=== PATIENT | female | born 1980 | race Caucasian/White ===

== ENCOUNTER 2017-08-18 19:26 | Inpatient (IN) | payer MEDICAID ==
[2017-08-18] MEDS ORDERED: ceFAZolin 2 GM in Premix Bag 1 BAG IV ONE (20:21)
[2017-08-18] MEDS ORDERED: Metoclopramide 10 MG/2 ML SDV IVPUSH ONE (20:21)
[2017-08-18] MEDS ORDERED: Citric Acid/Sodium Citrate Solution 30 ML Cup PO ONE (20:21)
[2017-08-18] MEDS ORDERED: Sodium Chloride 0.9% 10 ML Syringe FLUSH PRN (20:21)
[2017-08-18] MEDS: Lactated Ringers 1,000 ML IV SCH ×2 (20:30→21:04)
[2017-08-18] MEDS ORDERED: Bupivacaine 0.5% 30 ML SDV ONE (20:31)
--- NOTE | 2017-08-18 20:41 | PCM.LDHP ---
L&D History of Present Illness - General Date of Service: 08/18/17 Admit Problem/Dx: Patient Status Order with Admit Dx/Problem 08/18/17 20:26 Patient Status [ADT] Routine Admission Diagnosis/Problem Admission Diagnosis/Problem 08/18/17 20:29 38-0/7 week IUP, history of previous section, active labor, hypertension Source of Information: Patient History Limitations: Reports: No Limitations - History of Present Illness Introduction:: Ynes is a 37-year-old 3 para 1011 white female who is evaluated in labor and delivery for complaints of contractions. Contractions occurring every 4-7 lengths. There was mild to moderate by her report. She was evaluated earlier today. She had contractions for about 3 hours at that time but they did not change her cervix. She was sent home but it's come back now reporting the contractions are stronger. She denies any ruptured membranes. Baby is been active. heart tones are reassuring. Patient has previous history of section that was done for high blood pressure. Baby weighed 10 lbs. 1 oz. She is prepped for repeat serum section. The procedure, risks, benefits, alternatives of care and follow-up were discussed in detail patient. She appears to understand and wish to proceed. [employer] history: 3 para 1011 TRISH is 09/01/2017 as based upon a an early ultrasound done at 6-0/7 weeks on 01/06/2017. This is supported by 3 other ultrasounds done later in . Her initial course was significant in that she declined genetic testing. She has a history of depression. Her invert depression screening score however on 04/03/2017 was scored and 9. She failed her 1 hour GTT but her 3 hour glucose tolerance test was normal. Groupie strep screen is positive. Has been on Zoloft in the past. Her previous deliveries by section for high blood pressure. She had a miscarriage in 01/13/2013. Last menstrual period was 10/09/2016 but was uncertain. Weight gain during the course of her was from 243 pounds up to 260 pounds for 25 pound weight gain. Blood pressures have been normal until her admission for this evaluation which tented running in the 150s 160s over low 100s diastolically. Laboratory testing shows her blood to be O+. Her antibody screen is negative. Her hemoglobin is 14.3 and platelets are 2 58,000 on her first visit. Her daughter shows immunity. RPR is nonreactive. Urine culture negative. Hepatitis B antigen negative. HIV assay was negative. Her GC and chlamydia assay were normal. Her second trimester hemoglobin was 12.3 and her MCV is 86.6. Allergies: Ibuprofen which causes nausea Medications: vitamins 1 daily Past medical history: 1. Miscarriage. 2. with hypertension and macrosomia-delivered by section Past surgical history: 1. primary section. Family history: No significant rales no specific renal anesthesia, bleeding or blood clotting problems noted. Social history patient is single. Her significant other is Ivan Valladares. She continues smokes 15 cigarettes per day. She is not using significant alkaline phosphatase alcohol drugs otherwise. She lives in [facility]. Review of systems: Skin: Negative Cardiovascular: Negative. No palpitations or exercise intolerance noted. Respiratory: Negative Breasts: Changes Murillo GI: Normal. : Changes associated with Neurological: Negative Musca skeletal: Negative Physical exam blood pressure 7 elevated. Her weight in clinic was 268 pounds. Her height is 5 feet 4. In general patient is well-developed, well-nourished, pleasant female was massively obese and had a first vitamins and BMI of 40. Skin is warm and dry. Patient has some acne scarring. HEENT neck and back within normal lives. Cardiovascular exam shows regular rate and rhythm Lungs are clear with good breath sounds in all lung moe. Breast exam deferred. Abdomen is protuberant with with last fundal height in clinic and noted to be 39 cm. Baby in vertex presentation Cervical exam is closed, -3 very difficult to Extremities and neurological exam grossly within normal. Deep tendon reflexes now are minimal to 1+ over 4 bilateral lower extremities and upper extremities - Related Data Allergies/Adverse Reactions: Allergies Allergy/AdvReac Type Severity Reaction Status Date / Time ibuprofen AdvReac Nausea and Verified 01/16/17 21:15 Vomiting Home Medications: Home Meds . 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, L knee arthoscopy, R knee pain (chronic) Neurological History: Reports: Migraines Psychiatric History: Reports: Depression Other Dermatologic History: pt has sores on arms, open sores, pt states, "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." pt states, "I don't know what the sores are from - Past Surgical History Female Surgical History: Reports: Section, Lithotripsy/ESWL Musculoskeletal Surgical History: Reports: Amputation, Arthroscopic Knee Social & Family History - Family History Family Medical History: Noncontributory - Tobacco Use Smoking Status *Q: Current Every Day Smoker Years of Tobacco use: 17 Packs/Tins Daily: 0.5 Used Tobacco, but Quit: No Month Tobacco Last Used: 2 weeks ago Second Hand Smoke Exposure: Yes - Caffeine Use Caffeine Use: Reports: Soda - Alcohol Use Days Per Week of Alcohol Use: 0 Number of Drinks Per Day: 1 Total Drinks Per Week: 0 - Recreational Drug Use Recreational Drug Use: No Drug Use in Last 12 Months: Yes Recreational Drug Type: Reports: Marijuana/Hashish Recreational Drug Use Frequency: Binges H&P Review of Systems - Review of Systems: Review Of Systems: See Below L&D Exam - Exam Exam: See Below - Vital Signs Weight: 122.016 kg Problem List Initiated/Reviewed/Updated: Yes Orders Last 24hrs: Active Orders 24 hr Category Date Time Status Patient Status [ADT] Routine ADT 08/18/17 20:26 Ordered Communication Order [RC] ROUTINE Care 08/18/17 20:26 Ordered Heart Tones [RC] PER UNIT ROUTINE Care 08/18/17 20:26 Ordered Peripheral IV Care [RC] . DIRECTED Care 08/18/17 20:27 Ordered Procedure Site Prep Instruct [RC] ASDIRECTED Care 08/18/17 20:26 Ordered Verify Patient Consent Obtain [RC] PER UNIT ROUTINE Care 08/18/17 20:26 Ordered Vital Signs [RC] PFP Care 08/18/17 20:26 Ordered Nothing Per Oral Diet [DIET] Diet 08/18/17 Dinner Ordered ALANINE AMINOTRANSFERASE,ALT [CHEM] Stat Lab 08/18/17 20:29 Ordered ASPARTATE AMNIOTRANSFERASE,AST [CHEM] Stat Lab 08/18/17 20:29 Ordered CBC WITH AUTO DIFF [HEME] Stat Lab 08/18/17 20:29 Ordered CREATININE W/GFR [CHEM] Stat Lab 08/18/17 20:29 Ordered LACTATE DEHYDROGENASE,LDH [CHEM] Stat Lab 08/18/17 20:29 Ordered TYPE AND SCREEN [BBK] Routine Lab 08/18/17 20:26 Ordered URIC ACID [CHEM] Stat Lab 08/18/17 20:29 Ordered Citric Acid/Sodium Citrate [Bicitra Solution] Med 08/18/17 20:21 Once 30 ml PO ONETIME ONE Lactated Ringers @ 125 MLS/HR(1000ml) Med 08/18/17 20:30 Ordered Lactated Ringers [Ringers, Lactated] 1,000 ml IV ASDIRECTED Metoclopramide [Reglan] Med 08/18/17 20:21 Once 10 mg IVPUSH ONETIME ONE Sodium Chloride 0.9% [Saline Flush] Med 08/18/17 20:21 Ordered 10 ml FLUSH ASDIRECTED PRN ceFAZolin [Ancef] 2 gm Med 08/18/17 20:21 Ordered Premix Bag 1 bag IV ONETIME PIH Panel [OM.PC] Stat Oth 08/18/17 20:21 Ordered Peripheral IV Insertion Adult [OM.PC] Routine Oth 08/18/17 20:26 Ordered Schedule Procedure [COMM] Per Unit Routine Oth 08/18/17 20:26 Ordered Resuscitation Status Routine Resus Stat 08/18/17 20:21 Ordered Assessment/Plan Comment:: Assessment: 1. 38-0/7 week intrauterine , labor, history of previous section desire for repeat section 2. Hypertension in labor. 3. Risk factors for surgery include history of previous section, obesity, , group B strep positive status 4. Patient plans to bottlefeed. Plan: 1. Repeat lower segment transverse section through Pfannenstiel skin incision under spinal block. Procedure, risks, benefits, possible complications , follow-up all discussed patient. She appears to understand and wishes to proceed 2. DVT prophylaxis SCDs 3. Infection prophylaxis Ancef 4. CBC, induced hypertension labs to be performed.
--- NOTE | 2017-08-18 20:48 | PCM.PREANE ---
Preanesthetic Assessment - Procedure Proposed Procedure: Repeat CSection - Anesthesia/Transfusion/Family Hx Anesthesia History: Prior Anesthesia Without Reaction Family History of Anesthesia Reaction: No Transfusion History: No Prior Transfusion(s) - Review of Systems General: No Symptoms Pulmonary: No Symptoms Cardiovascular: No Symptoms Gastrointestinal: No Symptoms Neurological: No Symptoms Other: Reports: None - Physical Assessment NPO Status Date: 08/18/17 NPO Status Time: 17:30 Pulse: 86 O2 Sat by Pulse Oximetry: 98 Respiratory Rate: 20 Blood Pressure: 148/84 Height: 1.63 m Weight: 122.016 kg ASA Class: 2 Mental Status: Alert & Oriented x3 Airway Class: Mallampati = 1 Dentition: Reports: Broken Tooth/Teeth (right upper molar cracked ), Missing Tooth/Teeth (molars) Thyro-Mental Finger Breadths: 3 Mouth Opening Finger Breadths: 3 ROM/Head Extension: Full Lungs: Clear to Auscultation, Normal Respiratory Effort Cardiovascular: Regular Rate, Regular Rhythm - Allergies Allergies/Adverse Reactions: Allergies Allergy/AdvReac Type Severity Reaction Status Date / Time ibuprofen AdvReac Nausea and Verified 01/16/17 21:15 Vomiting - Blood Blood Available: No Product(s) Available: None - Anesthesia Plan Pre-Op Medication Ordered: None - Acknowledgements Anesthesia Type Planned: Spinal Pt an Appropriate Candidate for the Planned Anesthesia: Yes Alternatives and Risks of Anesthesia Discussed w Pt/Guardian: Yes Pt/Guardian Understands and Agrees with Anesthesia Plan: Yes PreAnesthesia Questionnaire - Past Health History Medical/Surgical History: Denies Medical/Surgical History Gastrointestinal History: Reports: Other (See Below) Other Gastrointestinal History: obesity Genitourinary History: Reports: Renal Calculus 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: 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: Spontaneous Musculoskeletal History: Reports: Other (See Below) Other Musculoskeletal History: L shoulder fx, 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, L knee arthoscopy, R knee pain (chronic) Neurological History: Reports: Migraines Psychiatric History: Reports: Depression Other Dermatologic History: pt has sores on arms, open sores, pt states, "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 [No Known Home Meds] 01/16/17 [History] - CURRENT (IN HOUSE) MEDS Current Meds: Current Medications Cefazolin Sodium/Dextrose 2 gm (/ Premix) 50 mls @ 100 mls/hr IV ONETIME ONE Stop: 08/18/17 20:50 Lactated Ringer's (Ringers, Lactated) 1,000 mls @ 125 mls/hr IV ASDIRECTED YENNI Last Admin: 08/18/17 20:30 Dose: 999 mls/hr Sodium Chloride (Saline Flush) 10 ml FLUSH ASDIRECTED PRN PRN Reason: Keep Vein Open Discontinued Medications Citric Acid/Sodium Citrate (Bicitra Solution) 30 ml PO ONETIME ONE Stop: 08/18/17 20:22 Metoclopramide HCl (Reglan) 10 mg IVPUSH ONETIME ONE Stop: 08/18/17 20:22
[2017-08-18] MEDS ORDERED: Meperidine PF 50 MG/ML Syringe IVPUSH PRN (21:49)
[2017-08-18] MEDS ORDERED: Ondansetron 4 MG/2 ML SDV IVPUSH PRN (21:49)
[2017-08-18] MEDS ORDERED: diphenhydrAMINE 50 MG/ML SDV IVPUSH PRN ×2 (21:49→23:31)
--- NOTE | 2017-08-18 22:24 | PCM.OPNOTE ---
- General Post-Op/Procedure Note Date of Surgery/Procedure: 08/18/17 Operative Procedure(s): Repeat lower uterine segment transverse section through Pfannenstiel skin incision Findings: Moderate scarring in the anterior abdominal wall and in the peritoneal cavity. Baby is in vertex presentation. Amniotic fluid was clear. Uterus tubes and ovaries otherwise were consistent with term . Lower uterine segment was approximately 2-3 mm thick. The baby weighed 7 lbs. 13 oz., was a male , was born at 2136 hrs. on 08/18/2015. Pre Op Diagnosis: 38-0/7 week intrauterine , history of previous section, early labor, desire for repeat section, transient gestational hypertension Post-Op Diagnosis: Same with delivery of a 7 lbs. 13 oz. male infant with Apgars of 9 and 9 Anesthesia Technique: Spinal Other Anesthesia Type: Marcaine 0.5%20 mL total Primary Surgeon: Reji Goldstein Secondary Surgeon: Ivan Mena Anesthesia Provider: Arden Simons Outreach Nurse: Jason Little Outreach Nurse: Micaela Gutierrez Fluid Replacement, Intraop: 1,200 (Crystalloid) Output, Urine Amount: 100 EBL in mLs: 600 Drain/Tube Comments:: Indwelling bladder catheter Complications: None Condition: Good Free Text/Narrative:: Surgery duration: 47 minutes Procedure: Patient was transferred the room and placed in a sitting position. Spinal anesthesias was administered. After confirmation of adequate anesthesia patient was placed in a supine position with a wedge under her right side to facilitate left lateral positioning. The patient was prepped and draped in usual fashion after Madden catheter was already placed . The anesthetic was checked and found to be adequate. The Pfannenstiel skin incision was then made carried down to skin subcutaneous and fascial layers. The fascia was then undermined superiorly and inferiorly to allow for adequate operating room the recti muscles midline and preperitoneal fat was bluntly dissected. Peritoneal cavity was entered longitudinally. The vesicouterine peritoneum was then incised transversely and bladder flap was developed. Myometrium was incised transversely to the level of the amniotic sac. This incision was extended bilaterally in a blunt fashion. The amniotic sac was then ruptured resulting clear amniotic fluid. A hand is placed and low uterine segment and the baby's head was brought forth through the incision. The baby was completely delivered using fundal pressure in a routine fashion. The nose and mouth were bulb suctioned. Baby's cord was clamped x2 cut and baby was handed off to attending bondactor machine operator Dr Cortez. Placenta was expressed after cord blood was obtained. Uterus was then exteriorized to allow for easier closure. The cervix was assessed and found to be dilated adequately to allow egress of blood. The uterus was closed in 2 layers. The first layer a running locked suture of 0 Monocryl, the second layer a running locked vertical mattress suture of 0 Monocryl. [id number] suture was placed at the left incision to control 1 bleeder. Hemostasis confirmed at this time. Sponge instrument needle counts are correct. The uterus was returned to the abdominal cavity and lateral gutters were cleared of blood. Once again sponge needle counts are correct. The anterior abdominal wall was closed with a #1 PDS suture from angle to angle. The subcutaneous area was found to be free of any bleeders. It was reapproximated with approximately 4 sutures of 0 Monocryl in an interrupted fashion. Skin was closed with a running subcuticular stitch of 3-0 Monocryl in a vertical mattress suture fashion using a Martin needle. Prineo mesh/glue was then applied to further approximate the incision. It should be noted that patient received 3 g of Ancef preoperatively for infection prophylaxis and had Pitocin infused after delivery of the placenta to facilitate uterine contraction. She also had sequential compression stockings in place for DVT prophylaxis. Patient was discharged from the operating room in satisfactory condition.
--- NOTE | 2017-08-18 22:27 | PCM.POSTAN ---
POST ANESTHESIA ASSESSMENT - MENTAL STATUS Mental Status: Alert, Oriented - VITAL SIGNS Pulse Rate: 71 SaO2: 96 Resp Rate: 25 Blood Pressure: 125/75 Temperature: 37.4 C - RESPIRATORY Respiratory Status: Respiratory Rate WNL, Airway Patent, O2 Saturation Stable - CARDIOVASCULAR CV Status: Pulse Rate WNL, Blood Pressure Stable - GASTROINTESTINAL GI Status: No Symptoms - PAIN Pain Score: 0 - POST OP HYDRATION Hydration Status: Adequate & Stable
[2017-08-18] MEDS: fentaNYL 100 MCG/2 ML SDV IVPUSH PRN ×3 (22:45→23:07)
[2017-08-18] MEDS ORDERED: Ondansetron 4 MG/2 ML SDV IV PRN (23:31)
[2017-08-18] MEDS ORDERED: ePHEDrine 50 MG/ML SDV IVPUSH PRN (23:31)
[2017-08-18] MEDS ORDERED: Dextrose 5%-Lactated Ringers 1,000 ML IV SCH (23:31)
[2017-08-18] MEDS ORDERED: Lanolin 100% Cream 7 GM Tube TOP PRN (23:31)
[2017-08-18] MEDS ORDERED: Naloxone 0.4 MG/ML SDV IVPUSH PRN (23:31)
[2017-08-18] MEDS ORDERED: Docusate Sodium 100 MG Cap PO PRN (23:31)
[2017-08-19] MEDS: Ketorolac 15 MG/ML SDV IVPUSH SCH ×3 (00:08→11:11)
[2017-08-19] MEDS ORDERED: Pneumococcal Polyvalent-23 Vaccine 0.5 ML SDV IM ONE (00:25)
[2017-08-19] MEDS ORDERED: Diphtheria,Pertussis(Acell),Tetanus Vaccine 0.5 ML SDV IM ONE (00:25)
[2017-08-19] MEDS: Acetaminophen/oxyCODONE 325-5 MG Tab PO PRN ×4 (02:35→19:41)
[2017-08-19] MEDS: Prenatal Multivitamin with Calcium/Folic Acid/Iron Tab PO SCH (08:16)
--- NOTE | 2017-08-19 09:31 | PCM48HPAN ---
Post Anesthesia Note - EVALUATION WITHIN 48HRS OF ANESTHETIC Vital Signs in Normal Range: Yes Patient Participated in Evaluation: Yes Respiratory Function Stable: Yes Airway Patent: Yes Cardiovascular Function Stable: Yes Hydration Status Stable: Yes Pain Control Satisfactory: Yes Nausea and Vomiting Control Satisfactory: Yes Mental Status Recovered: Yes - COMMENTS/OBSERVATIONS Free Text/Narrative:: Ynes has good movement in both of her legs. Denies headache and/or numbness and tingling in her legs. No further questions at this time.
--- NOTE | 2017-08-19 12:04 | PCM.SN ---
- Free Text/Narrative Note: Subjective: - Moderate amount of lochia - Currently has a urinary catheter - Breast feeding without difficulty. Objective: - VS: afebrile, last BP 148/97 w/ high of 152/80 overnight - Lungs: clear to auscultation bilaterally - CV: regular rate and rhythm, no murmurs - Abdomen: fundus located at umbilicus, firm, incision and dressing clean and intact - Extremities: no edema, DTRs normal, no calf tenderness - Labs: HGB 10.1, plt 143, uric acid 7.3 Assessment - Ynes is a 37-year-old G3, now P2012 s/p who is POD#1. - Blood pressures have been elevated - Currently breast feeding Plan: - Routine care - Continue monitoring blood pressures - IV to remain saline-locked - Possible d/c tomorrow - SCDs on while in bed
[2017-08-20] MEDS: Acetaminophen/oxyCODONE 325-5 MG Tab PO PRN ×5 (01:01→21:05)
[2017-08-20] MEDS: Prenatal Multivitamin with Calcium/Folic Acid/Iron Tab PO SCH (08:29)
--- NOTE | 2017-08-20 08:46 | PCM.SN ---
- Free Text/Narrative Note: Subjective: - Minimal amount of lochia - Breast feeding without difficulty Objective: - VS: afebrile, last BP 154/96, pulse 94 - Abdomen: fundus located one fingerbreadth below umbilicus, firm, incision and dressing clean and intact, mild ecchymosis noted above incision on patient's R- side of abdomen - Extremities: no edema, DTRs normal, no calf tenderness Assessment - Ynes is a 37-year-old G3, now P2012 s/p who is POD#2. - Blood pressures have remained elevated - Currently breast feeding Plan: - Routine care - Continue monitoring blood pressures - Begin labetalol 100 mg PO BID - Possible d/c tomorrow - SCDs on while in bed
[2017-08-20] MEDS: Labetalol 100 MG Tab PO SCH ×3 (08:54→21:04)
[2017-08-21] MEDS: Acetaminophen/oxyCODONE 325-5 MG Tab PO PRN ×2 (03:56→08:54)
--- NOTE | 2017-08-21 06:08 | PCM.DCSUM1 ---
Discharge Summary - Hospital Course Free Text/Narrative:: Ynes is a 37-year-old 2 now para 2000 white female who is admitted on 08/18/2017 for a repeat section. She had been in earlier that day with contractions and return to the clinic with progressive labor pains. She had a previous done with last for hypertension and was found to be in early labor. We proceeded to section. Please see operative report for details. She delivered a viable, 7 lbs. 13 oz. male infant born at 2136 hrs. on 08/18/2017. Baby had Apgars of 9 and 9. Upon admission to labor and delivery it was noted that her blood pressures were moderately elevated. After delivery she was started on labetalol 100 mg by mouth twice a day. Her uric acid was elevated at 7.3 but no other preeclampsia labs were abnormal. During the course of her /postoperative recovery her blood pressure stayed mildly elevated. She was increased to labetalol 200 mg every morning and 100 mg every afternoon on her last day in the hospital. The postoperative period she had essentially normal reflexes, minimal edema and no other signs or symptoms of preeclampsia. She is nursing without problems. She is desiring to be discharged today. - Discharge Data Discharge Date: 08/21/17 Discharge Disposition: Home, Self-Care 01 Condition: Good - Patient Summary/Data Operative Procedure(s) Performed: Repeat lower uterine segment transverse section through Pfannenstiel skin incision - Patient Instructions Diet: Regular Diet as Tolerated (Nursing diet with increased calcium and calories as recommended) Activity: As Tolerated (No lifting greater than 15 pounds, no baths for 1 week. No intercourse or tampons until seen back.) Driving: Do Not Drive (Do not drive for at least 1 week.) Showering/Bathing: May Shower Wound/Incision Care: Keep Operative Site/Wound Site Clean and Dry (Patient is informed as to how to take care of the Prineo mesh that is been placed on her abdominal incision.) Notify Provider of: Fever, Increased Pain, Swelling and Redness, Nausea and/or Vomiting - Discharge Plan Home Medications: Home Meds Acetaminophen/oxyCODONE [Percocet 325-5 MG] 2 tab PO Q4H PRN #30 tablet [Rx] Docusate Sodium [Colace] 100 mg PO Q12H PRN #10 cap 08/21/17 [Rx] Vit with Ca/FA/Iron [ Plus Iron] 1 each PO DAILY tablet [Rx] Patient Handouts: Delivery, Care After, Challenges and Solutions Referrals: Reji Goldstein MD [Primary Care Provider] - (Return to clinicDr. Goldstein1 week for blood pressure evaluation. Follow-up visit in 4 weeks for postop evaluation.) - Discharge Summary/Plan Comment DC Time >30 min.: No Discharge Summary/Plan Comment: Discharge instructions: 1. Discharge home 2. Regular, high fiber, nursing diet with increased calcium and calories as recommended 3. Precautions given concern increased pain, bleeding, temperature elevation, signs/symptoms of preeclampsia, DVT/PE. 4. Activity and follow-up discussed with patient. 5. Medications per home medication list printed, discussed with them given to the patient. 6. Return to clinic 1 week-Dr. Goldstein[facility]. Return to clinic-4 weeksDr. Goldsteinpostoperative visit Diagnosis: 1. 38 week intrauterine pregnancyhistory of previous section, active labor, delivered 2. Transient hypertension in Condition: Good - Patient Data Vitals - Most Recent: Last Vital Signs Temp 36.9 C 08/21/17 03:59 Pulse 90 08/21/17 03:59 Resp 18 08/21/17 03:59 BP 154/90 H 08/21/17 03:59 Pulse Ox 96 08/21/17 03:59 Weight - Most Recent: 122.016 kg I&O - Last 24 hours: Intake & Output 08/20/17 08/20/17 08/21/17 14:59 22:59 06:59 Intake Total 240 240 Balance 240 240 Med Orders - Current: Current Medications Diphenhydramine HCl (Benadryl) 25 mg IVPUSH Q6H PRN PRN Reason: Pruritis Diphenhydramine HCl (Benadryl) 25 mg IVPUSH Q6H PRN PRN Reason: Itching or Nausea Docusate Sodium (Colace) 100 mg PO Q12H PRN PRN Reason: Constipation Emollient Ointment (Lansinoh Hpa) 0 gm TOP ASDIRECTED PRN PRN Reason: Sore Nipples Ephedrine Sulfate (Ephedrine Sulfate) 5 mg IVPUSH SEECOMMENT PRN PRN Reason: Other Fentanyl (Sublimaze) 50 mcg IVPUSH Q5M PRN PRN Reason: Pain Last Admin: 08/18/17 23:07 Dose: 50 mcg Labetalol HCl (Normodyne) 200 mg PO ONETIME ONE Stop: 08/21/17 09:01 Meperidine HCl (Demerol) 12.5 mg IVPUSH ONETIME PRN PRN Reason: Shivering Naloxone HCl (Narcan) 0.1 mg IVPUSH SEECOMMENT PRN PRN Reason: Respiratory Depression Ondansetron HCl (Zofran) 4 mg IVPUSH ONETIME PRN PRN Reason: Nausea/Vomiting Ondansetron HCl (Zofran) 4 mg IV Q8H PRN PRN Reason: Nausea/Vomiting Oxycodone/Acetaminophen (Percocet 325-5 Mg) 2 tab PO Q4H PRN PRN Reason: Pain (moderate 4-6) Last Admin: 08/21/17 03:56 Dose: 2 tab Prenat Multivit/Aguila/Iron/Folic Ac ( Plus Iron) 1 each PO DAILY [facility], [facility] Last Admin: 08/20/17 08:29 Dose: 1 each Discontinued Medications Bupivacaine HCl (Marcaine 0.5%) Confirm Administered Dose 30 ml .ROUTE .STK-MED ONE Stop: 08/18/17 20:32 Last Admin: 08/18/17 21:32 Dose: 20 ml Citric Acid/Sodium Citrate (Bicitra Solution) 30 ml PO ONETIME ONE Stop: 08/18/17 20:22 Last Admin: 08/18/17 20:43 Dose: 30 ml Diphtheria/Tetanus/Acell Pertussis (Adacel) 0.5 ml IM .ONCE ONE Stop: 08/19/17 00:26 Last Admin: 08/19/17 22:33 Dose: 0.5 ml Cefazolin Sodium/Dextrose 2 gm (/ Premix) 50 mls @ 100 mls/hr IV ONETIME ONE Stop: 08/18/17 20:50 Last Admin: 08/19/17 00:00 Dose: Not Given Lactated Ringer's (Ringers, Lactated) 1,000 mls @ 125 mls/hr IV ASDIRECTED [facility], [facility] Last Admin: 08/18/17 21:04 Dose: 999 mls/hr Dextrose/Lactated Ringer's (Dextrose 5%-Lactated Ringers) 1,000 mls @ 125 mls/ hr IV ASDIRECTED YENNI Stop: 08/19/17 07:30 Last Admin: 08/19/17 01:15 Dose: 125 mls/hr Ketorolac Tromethamine (Toradol) 15 mg IVPUSH Q6H [facility] Stop: 08/19/17 11:01 Last Admin: 08/19/17 11:11 Dose: 15 mg Labetalol HCl (Normodyne) 100 mg PO BID [facility] Last Admin: 08/20/17 21:04 Dose: 100 mg Metoclopramide HCl (Reglan) 10 mg IVPUSH ONETIME ONE Stop: 08/18/17 20:22 Last Admin: 08/18/17 20:43 Dose: 10 mg Pneumococcal Polyvalent Vaccine (Pneumovax 23) 0.5 ml IM .ONCE ONE Stop: 08/19/17 00:26 Last Admin: 08/19/17 22:38 Dose: 0.5 ml Sodium Chloride (Saline Flush) 10 ml FLUSH ASDIRECTED PRN PRN Reason: Keep Vein Open *Q Meaningful Use (DIS) - VTE *Q VTE Criteria *Q: - Stroke *Q Stroke Criteria *Q: - AMI *Q AMI Criteria *Q:
[2017-08-21] MEDS: Prenatal Multivitamin with Calcium/Folic Acid/Iron Tab PO SCH (08:54)
[2017-08-21 08:57] VITALS: BP 156/100
[2017-08-21] MEDS ORDERED: Labetalol 100 MG Tab PO ONE (09:00)
== END 2017-08-21 09:55 | disposition home or self-care (01) | DRG 766 ==
LOC: JD.OB 19:26 → JD.OBCHECK 19:26 → JD.OB 20:57
PROVIDERS: ADMIT Obstetrics & Gynecology; ATTEND Obstetrics & Gynecology
PROC: 10D00Z1 Extraction of Products of Conception, Low, Open Approach (ICD-10-PCS; principal; 2017-08-18)
DX: O34.211 Maternal care for low transverse scar from previous cesarean delivery (principal); N85.8 Other specified noninflammatory disorders of uterus; Z3A.38 38 weeks gestation of pregnancy; Z37.0 Single live birth; O13.4 Gestational [pregnancy-induced] hypertension without significant proteinuria, complicating childbirth; Z88.8 Allergy status to other drugs, medicaments and biological substances; O99.334 Smoking (tobacco) complicating childbirth
CPT/HCPCS: 01961; 36415; 82565; 83615; 84450; 84460; 84520; 84550; 85025; 86850; 86900; 86901; 90471; 90715; 90732; A9270-GY; J1885; J2765; J3010; J7042; J7120

== ENCOUNTER 2018-04-27 20:53 | Emergency (ER) | payer MEDICAID ==
[2018-04-27 21:11] VITALS: BP 139/92
--- NOTE | 2018-04-27 22:39 | EDM.PDOC ---
ED HPI GENERAL MEDICAL PROBLEM - General Chief Complaint: Back Pain or Injury Stated Complaint: LOWER BACK PAIN Time Seen by Provider: 04/27/18 22:20 Source of Information: Reports: Patient History Limitations: Reports: No Limitations - History of Present Illness INITIAL COMMENTS - FREE TEXT/NARRATIVE: Patient is a 37-year-old female presents ED complaining of low back pain. 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 Since then the pain has persisted localized with no radiation. She did have to leave work yesterday. She did not work today as well. She is requesting a doctor's note. Patient denies any numbness or tingling to her lower extremities, incontinence to urine or stool, or saddle anesthesia. She's had this happen in the past usually resolves on its own accord. She has not taken any medications for this pain. 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 - Past Surgical History HEENT Surgical History: Reports: Tonsillectomy Female Surgical History: Reports: Section, Lithotripsy/ESWL Musculoskeletal Surgical History: Reports: Amputation, Arthroscopic Knee Social & Family History - Family History Family Medical History: Noncontributory - Tobacco Use Smoking Status *Q: Current Every Day Smoker Years of Tobacco use: 18 Packs/Tins Daily: 0.2 - Caffeine Use Caffeine Use: Reports: Soda Other Caffeine Use: 3 or more sodas per day - Recreational Drug Use Recreational Drug Use: No ED ROS GENERAL - Review of Systems Review Of Systems: ROS reveals no pertinent complaints other than HPI. ED EXAM,LOWER BACK PAIN/INJURY - Physical Exam Exam: See Below Exam Limited By: No Limitations General Appearance: Alert, WD/WN, No Apparent Distress Ears: Hearing Grossly Normal Nose: Normal Inspection Throat/Mouth: Normal Voice, No Airway Compromise Neck: Normal Inspection, Supple Respiratory/Chest: No Respiratory Distress, Lungs Clear, Normal Breath Sounds, No Accessory Muscle Use Cardiovascular: Normal Peripheral Pulses, Regular Rate, Rhythm GI/Abdominal: Normal Bowel Sounds, Soft, Non-Tender, No Organomegaly, No Distention Back Exam: Normal Inspection, Decreased Range of Motion, Paraspinal Tenderness ( Mild pain noted bilaterally with palpation along the waistline. No ecchymosis, swelling, rash present. ), Vertebral Tenderness (Mild pain along the waistline lumbar spine with palpation. No bony abnormalities noted.) Extremities: Normal Inspection, Normal Range of Motion, Non-Tender, No Pedal Edema Neurological: Alert, Normal Mood/Affect, Normal Dorsiflexion, Normal Plantar Flexion, No Motor/Sensory Deficits, Oriented x 3. No: Straight Leg Raise (L), Straight Leg Raise (R), Saddle Anesthesia Psychiatric: Normal Affect, Normal Mood Skin Exam: Warm, Dry Course - Vital Signs Last Recorded V/S: Last Vital Signs Temp 98.5 F 04/27/18 21:08 Pulse 108 H 04/27/18 21:08 Resp 16 04/27/18 21:08 BP 139/92 H 04/27/18 21:08 Pulse Ox 99 04/27/18 21:08 - Re-Assessments/Exams Free Text/Narrative Re-Assessment/Exam: Patient most likely strained her low back. Treatment is symptomatic care including: Ice, heat, Tylenol, ibuprofen, gentle massage, and passive stretching. She is requesting a doctor's note due to her absence. Discharge instructions as documented. Departure - Departure Time of Disposition: 22:37 Disposition: Home, Self-Care 01 Condition: Good Clinical Impression: Low back pain Qualifiers: Chronicity: chronic Back pain laterality: midline Sciatica presence: without sciatica Qualified Code(s): M54.5 - Low back pain - Discharge Information Instructions: Back Pain, Adult, Back Exercises, Back Injury Prevention Referrals: Diego Mendoza Jr, MD [Primary Care Provider] - Forms: ED Department Discharge, ED Return to Work/School Form Additional Instructions: Refrain from any activities that cause worsening pain. Utilize heat and ice in alternating fashion for discomfort. Take ibuprofen and Tylenol in alternating fashion for pain. Please follow up with your primary care provider if pain persists over the next week. Return to ED if you develop worsening pain, fever, saddle anesthesia, incontinence to urine or stool, numbness or tingling lower extremities, or any additional new or worsening symptoms.
== END 2018-04-27 22:49 | disposition home or self-care (01) ==
LOC: JD.ED 20:53
DX: M54.5 Low back pain (principal); F17.210 Nicotine dependence, cigarettes, uncomplicated; Z88.6 Allergy status to analgesic agent
CPT/HCPCS: 99282; 99283

== ENCOUNTER 2020-04-04 13:36 | Emergency (ER) | payer MEDICAID ==
[2020-04-04] MEDS ORDERED: Sodium Chloride 0.9% 1,000 ML IV ONE (13:46)
[2020-04-04 13:51] VITALS: BP 123/88; PULSE 90
[2020-04-04] MEDS ORDERED: Ondansetron 4 MG/2 ML SDV IVPUSH ONE (13:58)
[2020-04-04] MEDS ORDERED: Ketorolac 30 MG/ML SDV IVPUSH ONE (13:58)
--- NOTE | 2020-04-04 13:59 | EDM.PDOC ---
ED HPI GENERAL MEDICAL PROBLEM - General Chief Complaint: Flank Pain Stated Complaint: LT SIDE PAIN POSSIBLE KIDNEY STONE Time Seen by Provider: 04/04/20 13:45 Source of Information: Reports: Patient History Limitations: Reports: No Limitations - History of Present Illness INITIAL COMMENTS - FREE TEXT/NARRATIVE: Ynes Biggs is a 39-year-old female who presents the emergency room chief complaints of left flank pain. She reports the pain started 2 days ago radiates around into her abdomen. She reports the pain is a dull throbbing and stabbing at times. She reports yesterday she became nauseated and vomited 3 times she has had chills but no fever. Patient does report having a history of kidney stones in the past. She has not take anything for pain today. She reports she has been otherwise healthy. Onset Date: 04/01/20 Onset Time: 12:00 Duration: Intermittent Location: Reports: Back Quality: Reports: Ache Severity: Mild Improves with: Reports: None Worsens with: Reports: None Associated Symptoms: Reports: Fever/Chills, Nausea/Vomiting. Denies: Chest Pain , Shortness of Breath Left Flank Pain Score (Numeric/FACES): 7 - Related Data Allergies Allergy/AdvReac Type Severity Reaction Status Date / Time ibuprofen AdvReac Nausea and Verified 04/04/20 13:51 Vomiting Home Meds: Home Meds medroxyPROGESTERone [Provera] 10 mg PO DAILY #12 tab 10/02/18 [Rx] ALPRAZolam [Xanax] 0.5 mg PO BID 04/04/20 [History] Tamsulosin HCl [Flomax] 0.4 mg PO DAILY #14 cap.er.24h 04/04/20 [Rx] oxyCODONE HCl/Acetaminophen [Percocet 10-325 mg Tablet] 1 tab PO BID 04/04/20 [ History] Past Medical History - Past Health History Medical/Surgical History: Denies Medical/Surgical History HEENT History: Reports: None Gastrointestinal History: Reports: Other (See Below) Other Gastrointestinal History: obesity Genitourinary History: Reports: Renal Calculus 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 - Past Surgical History HEENT Surgical History: Reports: Tonsillectomy Female Surgical History: Reports: Section, Lithotripsy/ESWL Musculoskeletal Surgical History: Reports: Amputation, Arthroscopic Knee Social & Family History - Family History Family Medical History: Noncontributory - Caffeine Use Caffeine Use: Reports: Soda Other Caffeine Use: 3 or more sodas per day ED ROS GENERAL - Review of Systems Review Of Systems: See Below Constitutional: Reports: Chills. Denies: Fever HEENT: Reports: No Symptoms Respiratory: Denies: Shortness of Breath Cardiovascular: Denies: Chest Pain Endocrine: Reports: No Symptoms GI/Abdominal: Reports: Abdominal Pain, Nausea, Vomiting. Denies: Constipation, Diarrhea : Reports: Flank Pain (left ) Musculoskeletal: Reports: No Symptoms Skin: Reports: No Symptoms Neurological: Reports: No Symptoms Psychiatric: Reports: No Symptoms Hematologic/Lymphatic: Reports: No Symptoms Immunologic: Reports: No Symptoms ED EXAM, GI/ABD - Physical Exam Exam: See Below Exam Limited By: No Limitations General Appearance: Alert, WD/WN, No Apparent Distress Respiratory/Chest: No Respiratory Distress, Lungs Clear, Normal Breath Sounds, No Accessory Muscle Use, Chest Non-Tender Cardiovascular: Normal Peripheral Pulses, Regular Rate, Rhythm, No Edema, No Gallop, No JVD, No Murmur, No Rub GI/Abdominal Exam: Normal Bowel Sounds, Soft, Non-Tender, No Organomegaly, No Distention, No Mass Back Exam: Full Range of Motion, CVA Tenderness (L) Extremities: Normal Inspection, Normal Range of Motion, Non-Tender, No Pedal Edema, Normal Capillary Refill Neurological: Alert, Oriented Psychiatric: Normal Affect, Normal Mood Skin Exam: Warm, Dry, Intact, Normal Color Lymphatic: No Adenopathy Course - Vital Signs Text/Narrative:: Ynes Biggs is a 39-year-old female who presents emergency room with chief complaints of left flank pain for the past 2 days. She has a history of kidney stones in the past. She denies any fever, reports having chills that started yesterday. She reports nausea and vomiting. She denies any abdominal pain diarrhea or constipation. I will order labs to rule out infection, urinalysis, hCG and abdominal CT without contrast to rule out stones the other disease process. Last Recorded V/S: Last Vital Signs Temp 98.6 F 04/04/20 13:50 Pulse 90 04/04/20 13:50 Resp 16 04/04/20 13:50 BP 123/88 04/04/20 13:50 Pulse Ox 100 04/04/20 13:50 - Orders/Labs/Meds Labs: Laboratory Tests 04/04/20 04/04/20 Range/Units 14:00 14:00 Urine Color Yellow (Yellow) Urine Appearance Clear (Clear) Urine pH 6.0 (5.0-8.0) Ur Specific [place] 1.025 (1.005-1.030) Urine Protein Trace H (Negative) Urine Glucose (UA) Negative (Negative) Urine Ketones Negative (Negative) Urine Occult Blood Negative (Negative) Urine Nitrite Negative (Negative) Urine Bilirubin 1+ H (Negative) Urine Urobilinogen 0.2 (0.2-1.0) Ur Leukocyte Esterase Trace H (Negative) Urine RBC 0-5 (0-5) /hpf Urine WBC 10-20 H (0-5) /hpf Ur Epithelial Cells 10-20 H (0-5) /hpf Urine Bacteria Moderate H (FEW) /hpf Urine Mucus Moderate H (FEW) /hpf Urine HCG, Qual Negative (NEGATIVE) Meds: Medications Discontinued Medications Generic Name Dose Route Start Last Admin Trade Name Naren PRN Reason Stop Dose Admin Sodium Chloride 1,000 mls @ 999 mls/hr 04/04/20 13:46 04/04/20 14:20 Normal Saline IV 04/04/20 14:46 999 mls/hr ONETIME ONE Administration Ketorolac Tromethamine 30 mg 04/04/20 13:58 04/04/20 14:20 Toradol IVPUSH 04/04/20 13:59 30 mg ONETIME ONE Administration Ondansetron HCl 4 mg 04/04/20 13:58 04/04/20 14:21 Zofran IVPUSH 04/04/20 13:59 4 mg ONETIME ONE Administration - Re-Assessments/Exams Free Text/Narrative Re-Assessment/Exam: 04/04/20 14:34 Urinalysis RBC 0-5, negative HCG abdominal CT reveals a fatty infiltrates within the bowel wall within the right colon and cecum findings are seen with chronic colitis. Renal calculi are seen which appear not obstructing. No ureteral dilation or ureteral stones are seen. 04/04/20 15:02 Patient is resting comfortably at this time. Discussed findings with patient. I educated the patient on renal calculi. Departure - Departure Time of Disposition: 15:26 Disposition: Home, Self-Care 01 Condition: Good Clinical Impression: Calculus of kidney and ureter - Discharge Information *PRESCRIPTION DRUG MONITORING PROGRAM REVIEWED*: Yes *COPY OF PRESCRIPTION DRUG MONITORING REPORT IN PATIENT [place]: No Prescriptions: Tamsulosin HCl [Flomax] 0.4 mg PO DAILY #14 cap.er.24h Instructions: Kidney Stones, [id number], Flank Pain, Adult, [id number] Referrals: Diego Mendoza Jr, MD [Primary Care Provider] - Kurtis Menchaca MD [Ordering Only Provider] - Forms: ED Department Discharge Additional Instructions: Your seen and evaluated today for left flank pain. Your lab studies were unremarkable. Urinalysis did reveal a small amount of blood in your urine. Urine negative for . Your CAT scan did show that she had multiple small kidney stones. I recommend that you decrease your salt intake. Increase your fluid intake. You have been prescribed Flomax this will help facilitate urine output. Take your hydrocodone as prescribed for pain management. Follow- up with urology. Return to the emergency room for any new acute worsening symptoms. Sepsis Event Note - Evaluation Sepsis Screening Result: No Definite Risk - Focused Exam Vital Signs: Vital Signs Temp Pulse Resp BP Pulse Ox 04/04/20 13:50 98.6 F 90 16 123/88 100 Date Exam was Performed: 04/04/20 Time Exam was Performed: 15:25
--- NOTE | 2020-04-04 14:27 | CT ---
CT abdomen and pelvis Technique: Multiple axial sections were obtained from above the dome of the diaphragm inferiorly through the pubic symphysis. Intravenous and oral contrast was not utilized. Study performed as a ureteral stone protocol. Comparison: Prior CT abdomen and pelvis study of 11/04/16. Findings: Small nonobstructing calculi are seen within both kidneys. Largest stone is located within the mid left kidney measuring 6 mm in size. Ureters show no dilatation or evidence of obstructing calculi. Other findings: Visualized lung bases show nothing acute. Noncontrast appearance of the liver and spleen appears within normal limits. Adrenal glands show no nodule. Surgical clips are seen from prior cholecystectomy. Pancreas is within normal limits. Aorta shows no aneurysm. No retroperitoneal adenopathy or mesenteric abnormalities are appreciated. There appears to be bowel wall fatty infiltration within the right colon suggesting chronic inflammatory process. Appendix felt to be visualized and is normal in size. No inflammatory change or free fluid is seen. No pelvic mass or adenopathy is seen. No free fluid is seen. Bone window settings were reviewed which shows no acute osseous finding. Severe disc space narrowing is noted at L5-S1 with vacuum disc phenomena. Impression: 1. Fatty infiltration within the bowel wall within the right colon and cecum. These findings are usually seen with chronic colitis. This finding is not seen on prior study. 2. Renal calculi are seen which appear nonobstructing. No ureteral dilatation or ureteral stone is seen. 3. No acute finding is appreciated on CT study of the abdomen and pelvis. Diagnostic code #3 This report was dictated in MDT
== END 2020-04-04 15:58 | disposition home or self-care (01) ==
LOC: JD.ED 13:36
DX: N20.2 Calculus of kidney with calculus of ureter (principal); F32.9 Major depressive disorder, single episode, unspecified; E66.9 Obesity, unspecified; Z68.33 Body mass index [BMI] 33.0-33.9, adult; Z98.890 Other specified postprocedural states; Z79.899 Other long term (current) drug therapy; Z88.6 Allergy status to analgesic agent
CPT/HCPCS: 74176; 81001; 81025; 96361; 96374; 96375; 99284; J1885; J2405; J7030

== ENCOUNTER 2020-04-27 15:46 | Emergency (ER) | payer MEDICAID ==
[2020-04-27 15:57] VITALS: BP 136/94; PULSE 110
[2020-04-27] MEDS ORDERED: Sodium Chloride 0.9% 10 ML Syringe FLUSH PRN (16:09)
[2020-04-27] MEDS ORDERED: HYDROmorphone 0.5 MG/0.5 ML Syringe IVPUSH ONE ×2 (16:24→18:15)
[2020-04-27] MEDS ORDERED: Ketorolac 30 MG/ML SDV IVPUSH ONE (16:24)
[2020-04-27] MEDS ORDERED: Ondansetron 4 MG/2 ML SDV IVPUSH ONE (16:24)
[2020-04-27] MEDS ORDERED: Sodium Chloride 0.9% 1,000 ML IV SCH ×2 (16:30→18:30)
--- NOTE | 2020-04-27 16:58 | EDM.PDOC ---
ED HPI GENERAL MEDICAL PROBLEM - General Chief Complaint: Flank Pain Stated Complaint: LT SIDE PAIN AND LOW BACK PAIN Time Seen by Provider: 04/27/20 16:07 Source of Information: Reports: Patient History Limitations: Reports: No Limitations - History of Present Illness INITIAL COMMENTS - FREE TEXT/NARRATIVE: Patient is a 39-year-old female who presents to the emergency department with complaints of left sided flank pain, nausea, and vomiting. She states that the pain began about 3 days ago, however this morning got much worse. The nausea and vomiting began this morning. She does have a history of kidney stones. Her last kidney stone was diagnosed in this emergency department at the beginning of March. That was also on the left side. She feels that she passed the stone, however she is not sure because she would did not strain her urine. She was doing well until the onset of the symptoms approximately 2 days ago. She denies any fever or chills. She states that she took a Percocet that she had from her knee surgery around noon today, however she states that "that did not even help ". She feels the pain today is more intense than her past kidney stones have been. Left Flank Pain Score (Numeric/FACES): 9 - Related Data Allergies Allergy/AdvReac Type Severity Reaction Status Date / Time ibuprofen AdvReac Severe Nausea and Verified 04/27/20 16:00 Vomiting Home Meds: Home Meds ALPRAZolam [Xanax] 0.5 mg PO BID 04/04/20 [History] oxyCODONE HCl/Acetaminophen [Percocet 10-325 mg Tablet] 1 tab PO BID 04/04/20 [ History] Past Medical History - Past Health History Medical/Surgical History: Denies Medical/Surgical History HEENT History: Reports: None Cardiovascular History: Reports: Hypertension Gastrointestinal History: Reports: Other (See Below) Other Gastrointestinal History: obesity Genitourinary History: Reports: Renal Calculus 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 - Past Surgical History HEENT Surgical History: Reports: Tonsillectomy Female Surgical History: Reports: Section, Lithotripsy/ESWL Musculoskeletal Surgical History: Reports: Amputation, Arthroscopic Knee Social & Family History - Family History Family Medical History: Noncontributory - Tobacco Use Smoking Status *Q: Current Every Day Smoker Years of Tobacco use: 20 Packs/Tins Daily: 0.4 - Caffeine Use Caffeine Use: Reports: Soda Other Caffeine Use: 3 or more sodas per day - Recreational Drug Use Recreational Drug Use: No ED ROS GENERAL - Review of Systems Review Of Systems: See Below Constitutional: Denies: Fever, Chills HEENT: Reports: No Symptoms Respiratory: Reports: No Symptoms Cardiovascular: Reports: No Symptoms Endocrine: Reports: No Symptoms GI/Abdominal: Reports: Nausea, Vomiting : Reports: Flank Pain, Pain Musculoskeletal: Reports: No Symptoms Skin: Reports: No Symptoms Neurological: Reports: No Symptoms Psychiatric: Reports: No Symptoms Hematologic/Lymphatic: Reports: No Symptoms Immunologic: Reports: No Symptoms ED EXAM, RENAL/ - Physical Exam Exam: See Below Exam Limited By: No Limitations General Appearance: Alert, WD/WN, Mild Distress Respiratory/Chest: No Respiratory Distress Cardiovascular: Normal Peripheral Pulses, Regular Rate, Rhythm, No Edema, No Gallop, No JVD, No Murmur, No Rub GI/Abdominal: Normal Bowel Sounds, Soft, Non-Tender, No Organomegaly, No Distention, No Abnormal Bruit, No Mass Back Exam: Normal Inspection, CVA Tenderness (L) Neurological: Alert, Oriented, CN II-XII Intact, Normal Cognition, Normal Gait, Normal Reflexes, No Motor/Sensory Deficits Psychiatric: Normal Affect, Normal Mood Skin Exam: Warm, Dry, Intact, Normal Color, No Rash Course - Vital Signs Last Recorded V/S: Last Vital Signs Temp 98.7 F 04/27/20 15:55 Pulse 110 H 04/27/20 15:55 Resp 20 04/27/20 15:55 BP 136/94 H 04/27/20 15:55 Pulse Ox 100 04/27/20 15:55 - Orders/Labs/Meds Orders: Active Orders 24 hr Category Date Time Status Peripheral IV Care [RC] . DIRECTED Care 04/27/20 16:09 Active CULTURE URINE [RM] Stat Lab 04/27/20 18:45 Ordered Peripheral IV Insertion Adult [OM.PC] Stat Oth 04/27/20 16:09 Ordered Labs: Laboratory Tests 04/27/20 04/27/20 04/27/20 Range/Units 16:13 16:50 16:50 WBC 17.04 H (3.98-10.04) K/mm3 RBC 4.55 (3.98-5.22) M/mm3 Hgb 13.4 (11.2-15.7) gm/dl Hct 40.6 (34.1-44.9) % MCV 89.2 (79.4-94.8) fl MCH 29.5 (25.6-32.2) pg MCHC 33.0 (32.2-35.5) g/dl RDW Std Deviation 42.7 (36.4-46.3) fL Plt Count 241 (182-369) K/mm3 MPV 11.0 (9.4-12.3) fl Neut % (Auto) 91.9 H (34.0-71.1) % Lymph % (Auto) 4.0 L (19.3-51.7) % [place] % (Auto) 3.8 L (4.7-12.5) % Eos % (Auto) 0.1 L (0.7-5.8) Baso % (Auto) 0.1 (0.1-1.2) % Neut # (Auto) 15.67 H (1.56-6.13) K/mm3 Lymph # (Auto) 0.69 L (1.18-3.74) K/mm3 [place] # (Auto) 0.65 H (0.24-0.36) K/mm3 Eos # (Auto) 0.01 L (0.04-0.36) K/mm3 Baso # (Auto) 0.01 (0.01-0.08) K/mm3 Manual Slide Review Abnormal smear Sodium 135 L (136-145) mEq/L Potassium 4.0 (3.5-5.1) mEq/L Chloride 100 (98-107) mEq/L Carbon Dioxide 24 (21-32) mEq/L Anion Gap 15.0 (5-15) BUN 11 (7-18) mg/dL Creatinine 1.3 H (0.55-1.02) mg/dL Est Cr Clr Drug Dosing 53.32 mL/min Estimated GFR (MDRD) 46 (>60) mL/min BUN/Creatinine Ratio 8.5 L (14-18) Glucose 112 H (74-106) mg/dL Calcium 9.2 (8.5-10.1) mg/dL Total Bilirubin 0.9 (0.2-1.0) mg/dL AST 28 (15-37) U/L ALT 22 (14-59) U/L Alkaline Phosphatase 63 (46-116) U/L Total Protein 8.5 H (6.4-8.2) g/dl Albumin 4.1 (3.4-5.0) g/dl Globulin 4.4 gm/dL Albumin/Globulin Ratio 0.9 L (1-2) Urine Color Yellow (Yellow) Urine Appearance Slt cloudy H (Clear) Urine pH 6.0 (5.0-8.0) Ur Specific [place] > or = 1.030 (1.005-1.030) Urine Protein 1+ H (Negative) Urine Glucose (UA) Negative (Negative) Urine Ketones Trace H (Negative) Urine Occult Blood Trace-intact H (Negative) Urine Nitrite Negative (Negative) Urine Bilirubin Negative (Negative) Urine Urobilinogen 0.2 (0.2-1.0) Ur Leukocyte Esterase 1+ H (Negative) Urine RBC 0-5 (0-5) /hpf Urine WBC 30-40 H (0-5) /hpf Ur Squamous Epith Cells 5-10 H (0-5) /hpf Urine Bacteria Moderate H (FEW) /hpf Urine Mucus Few (FEW) /hpf Meds: Medications Discontinued Medications Generic Name Dose Route Start Last Admin Trade Name Freq PRN Reason Stop Dose Admin Hydromorphone HCl 0.5 mg 04/27/20 16:24 04/27/20 16:58 Dilaudid IVPUSH 04/27/20 16:25 0.5 mg ONETIME ONE Administration Hydromorphone HCl 0.5 mg 04/27/20 18:15 04/27/20 18:33 Dilaudid IVPUSH 04/27/20 18:16 0.5 mg ONETIME ONE Administration Sodium Chloride 1,000 mls @ 999 mls/hr 05/28/20 16:30 04/27/20 16:58 Normal Saline IV 999 mls/hr ASDIRECTED YENNI Administration Ceftriaxone Sodium 2 gm/ 100 mls @ 200 mls/hr 04/27/20 18:14 04/27/20 18:30 Sodium Chloride IV 04/27/20 18:43 200 mls/hr ONETIME ONE Administration Sodium Chloride 1,000 mls @ 100 mls/hr 04/27/20 18:30 04/27/20 18:30 Normal Saline IV 100 mls/hr ASDIRECTED YENNI Administration Ketorolac Tromethamine 30 mg 04/27/20 16:24 04/27/20 16:57 Toradol IVPUSH 04/27/20 16:25 30 mg ONETIME ONE Administration Ondansetron HCl 4 mg 04/27/20 16:24 04/27/20 16:57 Zofran IVPUSH 04/27/20 16:25 4 mg ONETIME ONE Administration Sodium Chloride 10 ml 04/27/20 16:09 04/27/20 16:59 Saline Flush FLUSH 10 ml ASDIRECTED PRN Administration Keep Vein Open - Re-Assessments/Exams Free Text/Narrative Re-Assessment/Exam: 04/27/20 18:44 Patient's hematology was significant for WBC elevated at 17.04 with a left shift. Sodium 135, creatinine 1.3. Urinalysis showed 1+ protein, trace ketones , trace intact occult blood, 1+ leukocyte esterase, 30-40 WBCs, 5-10 squamous epithelial cells, and moderate bacteria. CT of the abdomen pelvis shows a 9 mm obstructing stone near the UPJ. Based on these findings, patient has a significant kidney stone that she likely will not be able to pass, as well as a urinary tract infection which warrants immediate urology referral. Called and spoke with Dr. Menchaca the urologist on-call at [facility]. He recommended immediate transfer to [place] with Rocephin 2 g IV to be given now. Spoke with the hospitalist, Dr. Walker. He accepted the patient for admission. Patient will be transferred via ground ambulance. Departure - Departure Time of Disposition: 18:20 Disposition: DC/Tfer to Acute Hospital 02 Condition: Good Clinical Impression: Urinary tract obstruction due to kidney stone, UTI, Urinary tract infectious disease - Discharge Information Referrals: Diego Mendoza Jr, MD [Primary Care Provider] - Forms: ED Department Discharge Sepsis Event Note - Evaluation Sepsis Screening Result: No Definite Risk - Focused Exam Vital Signs: Vital Signs Temp Pulse Resp BP Pulse Ox 04/27/20 15:55 98.7 F 110 H 20 136/94 H 100 Date Exam was Performed: 04/27/20 Time Exam was Performed: 19:26 - My Orders Last 24 Hours: My Active Orders 04/27/20 16:09 Peripheral IV Care [RC] . DIRECTED Peripheral IV Insertion Adult [OM.PC] Stat 04/27/20 18:45 CULTURE URINE [RM] Stat - Assessment/Plan Last 24 Hours: My Active Orders 04/27/20 16:09 Peripheral IV Care [RC] . DIRECTED Peripheral IV Insertion Adult [OM.PC] Stat 04/27/20 18:45 CULTURE URINE [RM] Stat
--- NOTE | 2020-04-27 17:40 | CT ---
CT abdomen and pelvis Technique: Multiple axial sections were obtained from above the dome of the diaphragm inferiorly through the pubic symphysis. Intravenous and oral contrast was not utilized. Study has been performed as a ureteral stone protocol. Findings: Left kidney collecting system is dilated. Inflammatory change is noted around the left kidney as well as left kidney being swollen. These findings are caused by an obstructing stone slightly past the UPJ measuring about 9 mm. No additional ureteral calculi are seen. Small nonobstructing calculi are also noted within both kidneys. Visualized lung bases show nothing acute. Liver contains no discrete abnormality. Spleen appears normal in size. Adrenal glands show no nodule. Surgical clips are seen from prior cholecystectomy. Pancreas shows no discrete abnormality. Aorta shows no aneurysm. No retroperitoneal adenopathy or mesenteric abnormalities are seen. No pelvic mass or adenopathy is seen. No free fluid is identified. Appendix is felt to be visualized and is normal in size. Fatty infiltration is seen within the wall of the right colon which appears similar to prior study presumably due to chronic inflammation. Bone window settings were reviewed which shows severe disc space narrowing at L5-S1 with vacuum phenomena. Other portions of the spine shows minimal degenerative change. No acute osseous finding is seen. Impression: 1. Obstructing calculus within the proximal left ureter slightly past the UPJ. This calculus measures about 9 mm. This obstructing stone causes inflammatory change around the left kidney, hydronephrosis and a swollen left kidney. 2. Small nonobstructing calculi within both kidneys. 3. No other acute finding is seen on noncontrast CT study of the abdomen and pelvis. Diagnostic code #3 This report was dictated in MDT
[2020-04-27] MEDS ORDERED: cefTRIAXone 2 GM in Sodium Chloride 0.9% 100 ML IV ONE (18:14)
== END 2020-04-27 18:50 ==
LOC: JD.ED 15:46
DX: N39.0 Urinary tract infection, site not specified (principal); N13.9 Obstructive and reflux uropathy, unspecified; N20.0 Calculus of kidney; R11.2 Nausea with vomiting, unspecified; I10 Essential (primary) hypertension; E66.9 Obesity, unspecified; F32.9 Major depressive disorder, single episode, unspecified; F17.210 Nicotine dependence, cigarettes, uncomplicated; Z88.6 Allergy status to analgesic agent; Z79.899 Other long term (current) drug therapy; Z68.34 Body mass index [BMI] 34.0-34.9, adult
CPT/HCPCS: 36415; 74176; 80053; 81001; 85025; 87086; 96361; 96374; 96375; 96376; 99285; J0696; J1170; J1885; J2405; J7030; J7050; 87088

== ENCOUNTER 2021-11-19 12:43 | Emergency (ER) | payer MEDICAID ==
[2021-11-19 13:41] VITALS: BP 145/77; PULSE 79
--- NOTE | 2021-11-19 14:45 | CR ---
Left knee: 4 views of the left knee were obtained. Comparison: Prior left knee exam of 01/26/18. Mild medial joint space narrowing is seen. Lateral joint space is preserved. No joint effusion is seen. Spurring is not as well seen off the superior patella as seen previously due to technique. Minimal spurring is noted off the lateral joint. Impression: 1. Mild degenerative change as noted above. Findings have slightly progressed from previous exam. Diagnostic code #2
--- NOTE | 2021-11-19 14:58 | US ---
Left lower extremity deep venous ultrasound: Duplex and color Doppler evaluation was obtained of the left common femoral, proximal greater saphenous, superficial femoral, popliteal, posterior tibial and peroneal veins. Right common femoral vein was also evaluated. Comparison: No prior venous imaging is available. Findings: Normal phasic flow, augmentation and compression are seen. Impression: 1. No findings of deep venous thrombosis within the left lower extremity or within the right common femoral vein. Diagnostic code #1
--- NOTE | 2021-11-19 15:21 | EDM.PDOC ---
ED HPI GENERAL MEDICAL PROBLEM - General Chief Complaint: Lower Extremity Injury/Pain Stated Complaint: KNEE PAINS Time Seen by Provider: 11/19/21 13:32 Source of Information: Reports: Patient History Limitations: Reports: No Limitations - History of Present Illness INITIAL COMMENTS - FREE TEXT/NARRATIVE: The patient presents with left knee pain. She said this started this morning. She does not remember hurting her knee. She did not twist her knee or fall. She is in therapy for her right knee. She has no history of DVT or PE. 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 Left Knee Pain Score (Numeric/FACES): 8 - Related Data Allergies Allergy/AdvReac Type Severity Reaction Status Date / Time ibuprofen AdvReac Severe Nausea and Verified 04/27/20 16:00 Vomiting Home Meds: Home Meds ALPRAZolam [Xanax] 0.5 mg PO BID 04/04/20 [History] oxyCODONE HCl/Acetaminophen [Percocet 10-325 mg Tablet] 1 tab PO BID 04/04/20 [History] Naproxen [Naprosyn] 500 mg PO BID PRN #20 tablet 11/19/21 [Rx] Past Medical History - Past Health History Medical/Surgical History: Denies Medical/Surgical History HEENT History: Reports: None Cardiovascular History: Reports: Hypertension Gastrointestinal History: Reports: Other (See Below) Other Gastrointestinal History: obesity Genitourinary History: Reports: Renal Calculus 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 - Past Surgical History HEENT Surgical History: Reports: Tonsillectomy GI Surgical History: Reports: Cholecystectomy Female Surgical History: Reports: Section, Lithotripsy/ESWL Neurological Surgical History: Reports: None Musculoskeletal Surgical History: Reports: Amputation, Arthroscopic Knee Other Musculoskeletal Surgeries/Procedures:: L little finger Dermatological Surgical History: Reports: None Social & Family History - Family History Family Medical History: No Pertinent Family History - Tobacco Use Tobacco Use Status *Q: Current Every Day Tobacco User Years of Tobacco use: 10 Packs/Tins Daily: 0.1 - Caffeine Use Caffeine Use: Reports: Energy Drinks, Soda Other Caffeine Use: 3 or more sodas per day - Recreational Drug Use Recreational Drug Use: No Review of Systems - Review of Systems Review Of Systems: See Below Constitutional: Reports: No Symptoms Eyes: Reports: No Symptoms Ears: Reports: No Symptoms Nose: Reports: No Symptoms Mouth/Throat: Reports: No Symptoms Respiratory: Reports: No Symptoms Cardiovascular: Reports: No Symptoms GI/Abdominal: Reports: No Symptoms Genitourinary: Reports: No Symptoms Musculoskeletal: Reports: Other (left knee pain) Skin: Reports: No Symptoms Neurological: Reports: No Symptoms ED EXAM, GENERAL - Physical Exam Exam: See Below Exam Limited By: No Limitations General Appearance: Alert, No Apparent Distress Ears: Normal External Exam Nose: Normal Inspection Head: Atraumatic, Normocephalic Neck: Normal Inspection Respiratory/Chest: No Respiratory Distress Extremities: Other (Pain upon palpation to the left medial knee. There is an area of ecchymosis there. The ligaments apear to be stable. Good sensation and pulses distally.) Course - Vital Signs Last Recorded V/S: Last Vital Signs Temp 98.3 F 11/19/21 13:38 Pulse 79 11/19/21 13:38 Resp 20 11/19/21 13:38 BP 145/77 H 11/19/21 13:38 Pulse Ox 98 11/19/21 13:38 - Re-Assessments/Exams Free Text/Narrative Re-Assessment/Exam: 11/19/21 15:19 I ordered an x-ray of her knee and an US of her leg. Departure - Departure Time of Disposition: 15:25 Disposition: Home, Self-Care 01 Condition: Good Clinical Impression: Left knee pain Qualifiers: Chronicity: acute Qualified Code(s): M25.562 - Pain in left knee - Discharge Information *PRESCRIPTION DRUG MONITORING PROGRAM REVIEWED*: Not Applicable *COPY OF PRESCRIPTION DRUG MONITORING REPORT IN PATIENT [place]: Not Applicable Prescriptions: Naproxen [Naprosyn] 500 mg PO BID PRN #20 tablet PRN Reason: Pain Referrals: Sandi Ceballos MD [Primary Care Provider] - 1 Week Additional Instructions: Take your medications as prescribed. Take the naprosyn two times per day as needed for pain. Please return if you are worse. Sepsis Event Note (ED) - Focused Exam Vital Signs: Vital Signs Temp Pulse Resp BP Pulse Ox 11/19/21 13:38 98.3 F 79 20 145/77 H 98
== END 2021-11-19 15:45 | disposition home or self-care (01) ==
LOC: JD.ED 12:43
DX: M25.562 Pain in left knee (principal); I10 Essential (primary) hypertension; Z88.8 Allergy status to other drugs, medicaments and biological substances; Z72.0 Tobacco use
CPT/HCPCS: 73564-26-LT; 73564-LT; 93971-26-LT; 93971-LT; 99284-25

== ENCOUNTER 2022-03-16 11:41 | Emergency (ER) | payer MEDICAID ==
[2022-03-16 12:09] VITALS: BP 165/106; PULSE 79
== END 2022-03-16 12:51 | disposition home or self-care (01) ==
LOC: JD.ED 11:41
DX: M25.561 Pain in right knee (principal); M25.562 Pain in left knee; I10 Essential (primary) hypertension; Z88.8 Allergy status to other drugs, medicaments and biological substances; Z72.0 Tobacco use; Z86.16 Personal history of COVID-19
CPT/HCPCS: 99282; 99283

== ENCOUNTER 2025-02-14 15:31 | Emergency (ER) | payer MEDICAID ==
[2025-02-14 15:49] VITALS: BP 146/106; PULSE 85
[2025-02-14] MEDS: Ondansetron 4 MG Tab.DIS PO ONE (16:43)
[2025-02-14 17:10] LABS: APPEARANCE,URINE CLOUDY (Clear); BILIRUBIN,URINE 1+ (Negative); COLOR,URINE DARK YELLOW (Yellow); GLUCOSE,URINE NEGATIVE (Negative); KETONES,URINE 1+ (Negative); LEUKOCYTE ESTERASE,URINE 1+ (Negative); NITRITE,URINE POSITIVE (Negative); OCCULT BLOOD,URINE TRACE-INTACT (Negative); PROTEIN,URINE 2+ (Negative)
[2025-02-14 17:22] LABS: BACTERIA,URINE MANY /hpf (FEW); MUCUS,URINE MODERATE /hpf (FEW); WBC,URINE 50-75 /hpf (0-5)
== END 2025-02-14 18:17 | disposition home or self-care (01) ==
LOC: JD.ED 15:31
DX: B34.9 Viral infection, unspecified (principal); N39.0 Urinary tract infection, site not specified; I10 Essential (primary) hypertension; Z88.6 Allergy status to analgesic agent; Z79.899 Other long term (current) drug therapy; Z86.16 Personal history of COVID-19; Z90.49 Acquired absence of other specified parts of digestive tract
CPT/HCPCS: 71046; 81001; 87086; 87428; 87651; 99283; A9270; 87088; 87186

== ENCOUNTER 2025-02-16 09:50 | Emergency (ER) | payer MEDICAID ==
[2025-02-16 10:11] VITALS: PULSE 76
[2025-02-16] MEDS: Sodium Chloride 0.9% 10 ML Syringe FLUSH PRN ×2 (10:43→11:50)
[2025-02-16] MEDS: Sodium Chloride 0.9% 1,000 ML IV ONE (10:43)
[2025-02-16 10:49] LABS: BASOPHILS PERCENT AUTO 0.4 % (0.0-1.0); EOSINOPHILS ABSOLUTE AUTO 0.1 K/mm3 (0.0-0.4); EOSINOPHILS PERCENT AUTO 1.3 % (0.0-6.0); HEMATOCRIT 41.6 % (37.0-47.0); HEMOGLOBIN 13.8 gm/dl (12.0-16.0); IMMATURE GRAN ABSOLUTE AUTO 0.02 K/mm3 (0.00-0.05); IMMATURE GRAN PERCENT AUTO 0.3 % (0.0-0.4); LYMPHOCYTES PERCENT AUTO 15.2 % (24.0-44.0); MEAN CORPUSCULAR HEMOGLOBIN 29.4 pg (28.0-32.0); MEAN CORPUSCULAR HGB CONC 33.2 g/dl (32.0-36.0); MEAN CORPUSCULAR VOLUME 88.5 fl (83.0-99.0); MEAN PLATELET VOLUME 11.5 fl (9.4-12.3); MONOCYTES ABSOLUTE AUTO 0.5 K/mm3 (0.0-0.8); MONOCYTES PERCENT AUTO 7.1 % (0.0-8.0); NEUTROPHILS ABSOLUTE AUTO 5.1 K/mm3 (1.8-7.7); NEUTROPHILS PERCENT AUTO 75.7 % (41.0-71.0); PLATELET COUNT,PLT 194 K/mm3 (150-400); WHITE BLOOD CELL COUNT,WBC 6.78 K/mm3 (3.9-11.3)
[2025-02-16 11:26] LABS: A/G RATIO 0.9 (1-2); ALBUMIN 3.6 g/dl (3.4-5.0); ANION GAP 16.7 (5-15); BILIRUBIN TOTAL 0.7 mg/dL (0.2-1.0); BUN/CREATININE RATIO 16.3 (14-18); CALCIUM 8.9 mg/dL (8.5-10.1); CREATININE 0.8 mg/dL (0.55-1.02); EST CRCL DRUG DOSING (CG) 82.43 mL/min; POTASSIUM,K 3.7 mEq/L (3.5-5.1); PROTEIN TOTAL,TP 7.6 g/dl (6.4-8.2)
[2025-02-16] MEDS: Iopamidol 612 MG/ML 100 ML Bottle IVPUSH ONE (11:50)
[2025-02-16 12:02] LABS: APPEARANCE,URINE CLEAR (Clear); BILIRUBIN,URINE NEGATIVE (Negative); COLOR,URINE YELLOW (Yellow); GLUCOSE,URINE NEGATIVE (Negative); KETONES,URINE 1+ (Negative); LEUKOCYTE ESTERASE,URINE 1+ (Negative); NITRITE,URINE NEGATIVE (Negative); OCCULT BLOOD,URINE NEGATIVE (Negative); PH,URINE 7.5 (5.0-8.0); PROTEIN,URINE NEGATIVE (Negative); UROBILINOGEN,URINE 0.2 (0.2-1.0)
[2025-02-16 12:19] LABS: BACTERIA,URINE MODERATE /hpf (FEW); EPITHELIAL CELLS,URINE 30-40 /hpf (0-5); MUCUS,URINE RARE /hpf (FEW); RBC,URINE 0-5 /hpf (0-5)
[2025-02-16 13:09] VITALS: BP 145/92
== END 2025-02-16 13:08 | disposition home or self-care (01) ==
LOC: JD.ED 09:50
DX: N10 Acute pyelonephritis (principal); I10 Essential (primary) hypertension; E66.9 Obesity, unspecified; Z79.899 Other long term (current) drug therapy; Z88.6 Allergy status to analgesic agent; Z68.41 Body mass index [BMI] 40.0-44.9, adult
CPT/HCPCS: 36415; 74177; 80053; 81001; 83690; 84703; 85025; 87086; 96360; 99284; J7030; Q9967